=== PATIENT | female | born 1995 | race Caucasian/White ===

== ENCOUNTER 2017-03-28 00:27 | Emergency (ER) | payer BC ==
[~2017-03-28] VITALS: Ht 165.1 cm; Wt 102.0 kg
[2017-03-28] MEDS ORDERED: SYNTHROID175 MCG PO (00:57)
== END 2017-03-28 02:50 | disposition short-term general hospital (02) ==
LOC: ER 00:27
DX: K52.9 Noninfective gastroenteritis and colitis, unspecified (principal); E03.9 Hypothyroidism, unspecified; F17.200 Nicotine dependence, unspecified, uncomplicated; Z79.899 Other long term (current) drug therapy; Z88.1 Allergy status to other antibiotic agents
CPT/HCPCS: J1200; J1885; J2405; J2765